=== PATIENT | female | born 1990 | race Caucasian/White ===

== ENCOUNTER → 2018-09-18 15:19 | Outpatient (CLI) | payer OTHER, SELFPAY | PROVIDERS: PCP Emergency Medicine; Visit Provider Nurse Practitioner Family | DX: Z00.00 Encounter for general adult medical examination without abnormal findings (principal) ==

== ENCOUNTER → 2019-09-23 08:52 | Outpatient (CLI) | payer OTHER, SELFPAY ==
--- NOTE | 2019-09-23 08:52 | US_ITS ---
PROCEDURE: US TRANSVAGINAL CLINICAL INDICATION: Enlarged bulky uterus COMPARISON: No exams were available for comparison FINDINGS: UTERUS: 10.3 centimeters x 7cmx 6cm with a combined endometrial thickness of 12.2mm. Uterine volume is approximately 199 cc. No discrete uterine lesions are demonstrated. LEFT OVARY: [id number] with a volume of 17.8ml. Left ovarian cyst 2.4 x 2.7 x 2.1 centimeters is noted likely functional in a patient this age. RIGHT OVARY: 3cmx 6ach2ir with a volume of 3.6ml. There is no free fluid or other abnormal adnexal mass. IMPRESSION: Left ovarian cyst likely functional. Relatively enlarged uterus with 12.2 millimeter thick endometrium. Dictated by: Josh Cat 09/23/2019 09:44 Electronically signed by Josh Cat in [facility] 09/23/2019 09:44
== END ==
PROVIDERS: PCP Family Medicine; Visit Provider Nurse Practitioner Obstetrics & Gynecology
DX: N85.2 Hypertrophy of uterus (principal)
CPT/HCPCS: 76830

== ENCOUNTER → 2021-07-01 13:29 | Outpatient (CLI) | payer OTHER, SELFPAY ==
[2021-07-01 13:44] LABS: Influenza A, PCR Not Detected (NotDetected); Influenza B, PCR Not Detected (NotDetected)
[2021-07-01 14:18] LABS: Coronavirus 19, PCR Detected (NotDetected)
== END ==
PROVIDERS: PCP Family Medicine; Visit Provider Emergency Medicine
DX: U07.1 COVID-19 (principal)
CPT/HCPCS: C9803; U0003; U0005